=== PATIENT | male | born 1995 | race Caucasian/White ===

== ENCOUNTER 2024-02-19 00:12 | Emergency (ER) | payer OTHER ==
[~2024-02-19] VITALS: Ht 185.4 cm; Wt 104.5 kg
[2024-02-19 01:00] VITALS: BP 133/87; PULSE 88; TEMP 97.8
== END 2024-02-19 01:00 | disposition home or self-care (01) ==
LOC: COL.ER 00:12
DX: K64.5 Perianal venous thrombosis (principal)

== ENCOUNTER 2024-03-12 02:01 | Emergency (ER) | payer OTHER ==
[~2024-03-12] VITALS: Ht 185.4 cm; Wt 109.1 kg
[2024-03-12 02:09] VITALS: BP 134/86; TEMP 97.4
[2024-03-12] MEDS ORDERED: NORFLEX 10100 MG/TAB PO (02:48)
[2024-03-12] MEDS ORDERED: NAPROXEN 3375 MG/TAB PO (02:48)
[2024-03-12 03:32] VITALS: PULSE 77
== END 2024-03-12 03:33 | disposition home or self-care (01) ==
LOC: COL.ER 02:01
DX: M54.50 Low back pain, unspecified (principal); F90.9 Attention-deficit hyperactivity disorder, unspecified type; Z79.899 Other long term (current) drug therapy